=== PATIENT | male | born 1975 | race Caucasian/White ===

== ENCOUNTER 2018-11-13 01:54 | Emergency (ER) | payer OTHER ==
[~2018-11-13] VITALS: Ht 175.3 cm; Wt 95.2 kg
[~2018-11-13 01:54] MED LIST: CLON.1 PO; CLON1 PO; Cleocin HCl300 MG PO; ESCI10 PO; GABA300 PO; IBUP600 PO; KETO10 PO; Lexapro 10 mg T10 MG PO; Mobic15 MG PO; Vistaril50 MG PO; Zithromax250 MG PO
== END 2018-11-13 04:50 | disposition home or self-care (01) ==
LOC: ER 01:54
DX: G43.909 Migraine, unspecified, not intractable, without status migrainosus (principal); Z91.013 Allergy to seafood; Z79.899 Other long term (current) drug therapy; F41.9 Anxiety disorder, unspecified; F43.10 Post-traumatic stress disorder, unspecified; I10 Essential (primary) hypertension
CPT/HCPCS: 70450; 99284-25; Q0163

== ENCOUNTER 2022-06-26 16:25 | Emergency (ER) | payer OTHER ==
[~2022-06-26] VITALS: Ht 175.3 cm; Wt 79.4 kg
== END 2022-06-26 19:14 | disposition home or self-care (01) ==
LOC: ER 16:25
DX: S62.015A Nondisplaced fracture of distal pole of navicular [scaphoid] bone of left wrist, initial encounter for closed fracture (principal); F17.220 Nicotine dependence, chewing tobacco, uncomplicated; Z91.013 Allergy to seafood; Z79.899 Other long term (current) drug therapy; V94.0XXA Hitting object or bottom of body of water due to fall from watercraft, initial encounter
CPT/HCPCS: 73110; J1885

== ENCOUNTER → 2022-10-28 | Outpatient (CLI) | payer OTHER | END | disposition home or self-care (01) | LOC: LAB SHORT 11:09 → PLD 11:09 | DX: L98.9 Disorder of the skin and subcutaneous tissue, unspecified (principal) | CPT/HCPCS: 88305; 88312 ==

== ENCOUNTER → 2022-10-28 | Outpatient (CLI) | payer OTHER | END | disposition home or self-care (01) | LOC: LAB 09:06 → LAB SHORT 09:06 | DX: L08.0 Pyoderma (principal) | CPT/HCPCS: 87070; 87205 ==